=== PATIENT | female | born 1950 ===

== ENCOUNTER 2017-03-02 12:12 | Day surgery (SDC) | payer MEDICARE ==
--- NOTE | 2017-01-29 16:31 | Pre-op HX & Phy Repo 2 SIG ---
DATE OF ADMISSION: 01/30/2017 TYPE OF ENDOSCOPY: Kock pouch endoscopy. HISTORY OF PRESENT ILLNESS: The patient is a 66-year-old female with a malfunctioning Kock pouch requiring manipulation to intubate and having constipation, likely opioid induced constipation. The patient developed ulcerative colitis at age 16. In 1972, she underwent proctocolectomy with Meenakshi ileostomy followed in 1979 by creation of a Kock pouch continent ileostomy. The patient has to insert a Q-tip or cotton tip applicator inside one of the drainage holes of a 30Fr Tanya catheter and then uses the rigidity of the Q-tip to pass the catheter through the stoma and removing the Q-tip to get the catheter into the pouch to empty the contents. The patient has a history of severe degenerative spine disease and fibromyalgia. She takes fentanyl and [place] and has difficulty evacuating the contents of her pouch despite taking MiraLax, Colace, and vitamin C. Her stoma has been seen to have some ulcerations and a local tobacco stripper hand attempted a pouch endoscopy, but the scope was too large and he never got into the pouch, but because of some alterations of the tract, a diagnosis of Crohn's disease was made and she was started on budesonide. She felt terrible and discontinued the budesonide. There is no evidence that she has Crohn's disease. OPERATIONS: In addition to the above, she underwent spine surgery in 2016. MEDICATIONS: Atorvastatin, chlordiazepoxide/clidinium, clonazepam, diclofenac, estradiol patch, fenofibrate, fentanyl, fluconazole, hydrocodone, acetaminophen 10/325 mg, hydroxyzine, levalbuterol tartrate, levothyroxine, lorazepam, methylphenidate, MiraLax, nitrofurantoin, Zofran, progesterone, rabeprazole, tizanidine, trazodone, and probiotic. ALLERGIES: aspirin, Celebrex, nitrofurantoin, paper tape, sulfa, and Flagyl. REVIEW OF SYSTEMS: acid reflux, anxiety disorder, arthritis, asthma, bronchitis, depression, dysphagia, fibromyalgia, neurogenic bladder, and restless leg syndrome. PHYSICAL EXAMINATION: GENERAL: The patient is 5 foot and 150 pounds, well developed well nourished. ABDOMEN: Soft. There is a left paramedian scar. The stoma of her Kock pouch is in the right lower quadrant with a normal size orifice. There is no evidence of abdominal wall hernia. IMPRESSION: Malfunctioning Kock pouch. PLAN: Kock pouch endoscopy without requiring any sedation or anesthesia. DISCUSSION: I have had a full discussion with the patient regarding the nature of the endoscopy, options and risks; she understands and agrees to proceed without anesthesia or sedation being required. El Wagner M.D. DR: CHE JOB#: [id number] CC: SERA
[~2017-03-02] VITALS: Ht 152.4 cm; Wt 65.8 kg
--- NOTE | 2017-03-02 12:32 | Pre-Procedure Note/Attestation ---
Pre-Procedure Note/Attestation Complete Prior to Procedure Planned Procedure: not applicable Procedure Narrative: Kock Pouch endoscopy Indications for Procedure Pre-Operative Diagnosis: malfunctioning Kock pouch with difficulty with intubation Attestation I attest that I discussed the nature of the procedure; its benefits; risks and complications; and alternatives (and the risks and benefits of such alternatives ), prior to the procedure, with the patient (or the patient's legal risk control representative). I attest that, if there was a reasonable possibility of needing a blood transfusion, the patient (or the patient's legal risk control representative) was given the [facility] standardized written summary, pursuant to the Ramy Jorje Blood Safety Act ([place] Health and Safety Code # 1645, as amended). I attest that I re-evaluated the patient just prior to the surgery and that there has been no change in the patient's H&P, except as documented below: none MAGGI MELO Mar 02, 2017 12:32
[2017-03-02] MEDS ORDERED: NORCO 10-325 T1 EACH ORAL (13:06)
[2017-03-02] MEDS ORDERED: FENTANYL1 EAC1 TOPIC (13:06)
[2017-03-02] MEDS ORDERED: ATIVAN0.5 MG ORAL (13:06)
[2017-03-02] MEDS ORDERED: FENOFIBRATE160 MG ORAL (13:06)
[2017-03-02] MEDS ORDERED: ESTRADIOL TRAN1 EAC2 TD (13:06)
[2017-03-02] MEDS ORDERED: LIPITOR20 MG ORAL (13:06)
[2017-03-02 13:11] VITALS: BP 103/58
[2017-03-02 13:30] VITALS: BP 115/68
--- NOTE | 2017-03-02 13:30 | Brief Operative Note ---
Immediate Post Operative Note Operative Note Pre-op Diagnosis: malfunctioning Kock pouch with difficulty with intubation Procedure: Kock pouch endoscopy Post-op Diagnosis: normal pouch, mildly angulated access segment Post-op Diagnosis: same as pre-op Findings: consistent w/pre-op dx studies Surgeon: allen Anesthesiologist: none Anesthesia: other - none Specimen: none Complications: none Condition: stable Fluids: none Estimated Blood Loss: none Drains: none Implant(s) used?: MAGGI Perea Mar 02, 2017 13:30
--- NOTE | 2017-03-03 02:30 | Procedure Note ---
DATE OF PROCEDURE: 03/02/2017 ENDOSCOPY PROCEDURE REPORT ENDOSCOPIST: El Wagner M.D. ANESTHESIA: None. SEDATION: None. PRE-ENDOSCOPY DIAGNOSES: 1. Malfunctioning Kock pouch continent ileostomy with mild difficulty with intubation. 2. History of Ulcerative Colitis 3. History of opioid induced constipation. POST-ENDOSCOPY DIAGNOSES: 1. Malfunctioning Kock pouch continent ileostomy with mild difficulty with intubation 2. History of Ulcerative Colitis 3. History of opioid induced constipation. ENDOSCOPY PERFORMED: Kock pouch endoscopy. FINDINGS: A normal pouch and nipple valve. Mild redundancy and angulation of the access segment with intubation related superficial erosions. DESCRIPTION OF PROCEDURE: The patient was taken to the GI lab without any anesthesia or sedation given or required. She was positioned supine. The abdomen was soft and the stoma was low in the right lower quadrant and well-formed. Using a GIF-P140 endoscope, the stoma was entered. The distance to the tip of the nipple valve was approximately 9 cm indicating slight redundancy in this patient. The pouch was distensible and mucosa was completely normal. Retroflexed views revealed a circumferentially well-formed nipple valve. Withdrawal views confirmed the above findings including slight angulation of the access segment at approximately 3 cm deep to the mucocutaneous junction with some catheter induced mucosal trauma with no evidence of bleeding. The patient tolerated the endoscopy well. After the procedure, I was able to readily insert a 28-[place] Brar catheter into the pouch to decompress retained air. I advised the patient to continue follow up with Gastroenterology and that no surgery would be required unless she develops more substantial or severe difficulty with intubation. El Wagner M.D. DR: CORY JOB#: [id number] CC: SERA
== END 2017-03-02 13:55 | disposition home or self-care (01) ==
LOC: GAS 12:12
DX: K94.13 Enterostomy malfunction (principal); K59.03 Drug induced constipation; Y83.8 Other surgical procedures as the cause of abnormal reaction of the patient, or of later complication, without mention of misadventure at the time of the procedure; T40.2X5A Adverse effect of other opioids, initial encounter; Y92.009 Unspecified place in unspecified non-institutional (private) residence as the place of occurrence of the external cause; J45.909 Unspecified asthma, uncomplicated; F32.9 Major depressive disorder, single episode, unspecified; R13.10 Dysphagia, unspecified; N31.9 Neuromuscular dysfunction of bladder, unspecified; G25.81 Restless legs syndrome; F41.9 Anxiety disorder, unspecified; K21.9 Gastro-esophageal reflux disease without esophagitis; M19.90 Unspecified osteoarthritis, unspecified site; M79.7 Fibromyalgia; G31.89 Other specified degenerative diseases of nervous system; Z88.3 Allergy status to other anti-infective agents; Z88.0 Allergy status to penicillin; Z88.2 Allergy status to sulfonamides; Z88.8 Allergy status to other drugs, medicaments and biological substances; Z79.891 Long term (current) use of opiate analgesic; Z87.19 Personal history of other diseases of the digestive system; Z90.49 Acquired absence of other specified parts of digestive tract